=== PATIENT | female | born 1970 | race Two or more races ===

== ENCOUNTER → 2018-02-23 | Emergency (ER) | payer OTHER ==
[~2018-02-23] VITALS: Ht 144.8 cm; Wt 65.8 kg
[~2018-02-23] MED LIST: DUI500 PO
== END | disposition home or self-care (01) ==
LOC: ER 01:49
DX: S01.82XA Laceration with foreign body of other part of head, initial encounter (principal); W25.XXXA Contact with sharp glass, initial encounter; Y93.89 Activity, other specified; Y92.098 Other place in other non-institutional residence as the place of occurrence of the external cause; Y99.8 Other external cause status